=== PATIENT | male | born 1945 | race African-American/Black ===

== ENCOUNTER 2020-02-17 19:00 | Emergency (ER) | payer OTHER ==
[~2020-02-17] VITALS: Ht 180.3 cm; Wt 77.1 kg
[~2020-02-17 19:00] MED LIST: ANUSOL-HC30 GM RC; AZOR 5-20 MG T1 EACH; CITRUCEL CLEAR539 G1 PO; METAMUCIL197.2 GM; NAPROSYN500 MG PO; NITRO-BID30 GM PO; [UNRECOGNIZED DRUG - OTHER]
[2020-02-17] MEDS ORDERED: VIAGRA25 MG PO (19:04)
[2020-02-17 20:02] VITALS: BP 127/93
== END 2020-02-17 20:15 | disposition home or self-care (01) ==
LOC: ER 19:00
DX: S05.01XA Injury of conjunctiva and corneal abrasion without foreign body, right eye, initial encounter (principal); I10 Essential (primary) hypertension; F17.210 Nicotine dependence, cigarettes, uncomplicated; Z79.899 Other long term (current) drug therapy; W22.8XXA Striking against or struck by other objects, initial encounter; Y93.89 Activity, other specified; Y92.89 Other specified places as the place of occurrence of the external cause; Y99.8 Other external cause status